=== PATIENT | male | born 1975 | race Hispanic/Latino ===

== ENCOUNTER 2024-04-16 20:43 | Emergency (ER) | payer OTHER ==
[~2024-04-16] VITALS: Ht 180.3 cm; Wt 89.8 kg
--- NOTE | 2024-04-16 20:46 | NUR ---
COVID AND FLU SWABS SENT FOR ANY FUTURE ORDERS
--- NOTE | 2024-04-16 20:57 | EKG ---
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
[2024-04-16 21:08] LABS: RAPID GROUP A STREP negative (NEGATIVE)
[2024-04-16 21:16] LABS: SARS-CoV-2, RNA, NAAT NEGATIVE SARS CoV-2 (NEGATIVE)
[2024-04-16 21:17] LABS: INFLUENZA TYPE A Negative For Type A (NEGATIVE); INFLUENZA TYPE B Negative For Type B (NEGATIVE)
--- NOTE | 2024-04-16 21:21 | ERN ---
General Chief Complaint: Fever Stated Complaint: FEVER, HEADACHE, GBW Time Seen by MD: 20:44 Source: patient History of Present Illness Initial Comments PATIENT IS A 48-YEAR-OLD MALE COMING IN TO BE EVALUATED FOR URI SYMPTOMS. HE STATES THAT THE SYMPTOMS BEGAN TWO DAYS AGO. STATES IT HAS BEEN COUGHING IN HIS HAS BEEN CHEST DISCOMFORT WHEN HE COUGHS. HE ALSO STATES THAT HE HAS BEEN HAVING CHILLS. Allergies: Coded Allergies: No Known Allergies (Unverified Allergy, Unknown, 04/16/24) Past Medical History Past Medical History: No Pertinent History Past Surgical History: None ROS Dictation CONSTITUTIONAL: CHILLS, NO FEVER, NO WEAKNESS, NO DIAPHORESIS, NO MALAISE. HEAD/FACE: NO SIGNS OF TRAUMA. EENT: NO EYE PAIN, NO BLURRED VISION, NO TEARING, NO DOUBLE VISION, NO EAR PAIN , NO EAR DISCHARGE, NO NOSE PAIN, NO NASAL CONGESTION, NO THROAT PAIN, NO THROAT SWELLING, NO MOUTH PAIN. RESPIRATORY: COUGH, NO ORTHOPNEA, NO SOB, NO STRIDOR, NO WHEEZING. CARDIOVASCULAR: NO CHEST PAIN, NO EDEMA, NO PALPITATIONS, NO SYNCOPE. GASTROINTESTINAL/ABDOMINAL: NO ABDOMINAL PAIN, NO CONSTIPATION, NO DIARRHEA, NO NAUSEA, NO VOMITING. GENITOURINARY: NO ABNORMAL DISCHARGE, NO DYSURIA, NO FREQUENT URINATION, NO HEMATURIA. NO COMPLAINTS OF PAIN IN THE GENITALS. MUSCULOSKELETAL: NO BACK PAIN, NO GOUT, NO JOINT PAIN, NO JOINT SWELLING, NO MUSCLE PAIN, NO MUSCLE STIFFNESS, NO NECK PAIN. INTEGUMENTARY: NO CHANGE IN COLOR, NO CHANGE IN HAIR/NAILS, NO DRYNESS, NO LESION, NO LUMPS, NO RASH. NEUROLOGICAL/PSYCH: NO ANXIETY, NOT DEPRESSED, NO EMOTIONAL PROBLEM, NO HEADACHE, NO NUMBNESS, NO PRE-EXISTING DEFICIT, NO HISTORY OF SEIZURES, NO TREMORS, NO WEAKNESS. HEMATOLOGIC/LYMPHATIC: NOT ANEMIC, NO HISTORY OF BLOOD CLOTS, NO APPARENT BLEEDING, NO BRUISING, GLANDS NOT SWOLLEN. ALL SYSTEMS NEGATIVE, EXCEPT NOTED. Physical Exam Physical Exam Dictation VITAL SIGNS: REVIEWED. GENERAL APPEARANCE: ALERT, ORIENTED X3, NO ACUTE DISTRESS, OBESE. HEAD AND FACE: NON-TRAUMATIC. EYES: PERRL, PINK CONJUNCTIVAS, EYELID NO TRAUMA, ANTERIOR CHAMBER CLEAR. EARS: PINNAS INTACT AND NO SIGNS OF TRAUMA OR ERYTHEMA. EAR CANALS CLEAR AND NO DISCHARGE. TMS NO ERYTHEMA. NOSE: NO DISCHARGE, NO BLEEDING. OROPHARYNX: MOUTH NORMAL, TEETH NO CARIES, TONGUE PINK. PHARYNX CLEAR, NO ER YTHEMA. TONSILS NO EXUDATES, NO ABSCESSES NOTED. MUCOUS MEMBRANE MOIST. NECK: SUPPLE, NON-TENDER, NO THYROMEGALY, NO MASSES, NO JVD, NO BRUITS. BREAST: DEFERRED. CHEST: NO TENDERNESS, NO CREPITUS, NO PARADOXICAL MOVEMENT, NO RETRACTIONS. LUNGS: CLEAR, WELL-VENTILATED, SYMMETRIC, NO RALES, NO WHEEZING, NO RHONCHI, NO STRIDOR, GOOD BREATH SOUNDS BILATERALLY. HEART: REGULAR RATE, REGULAR RHYTHM, NO MURMUR, NO GALLOPS. VASCULAR: NO PERIPHERAL EDEMA. ABDOMEN: SOFT, POSITIVE BOWEL SOUNDS, NONDISTENDED, NO GUARDING, NONTENDER, NO REBOUND, NO MASSES NO HEPATOMEGALY, NO SPLENOMEGALY, NO LU'S SIGN, NO HERNIAS. RECTAL: DEFERRED. GENITAL: DEFERRED. NEUROLOGICAL: NORMAL SPEECH, GROSS MOTOR FUNCTION INTACT, GROSS SENSORY FUNCTION INTACT. MUSCULOSKELETAL: NECK NONTENDER, FULL RANGE OF MOTION, BACK NONTENDER, FULL RANGE OF MOTION. EXTREMITIES: NONTENDER, FULL RANGE OF MOTION. SKIN: COLOR PINK, DRY, NO TURGOR, NO RASH, NO LACERATIONS, NO ABRASIONS, NO CONTUSIONS. LYMPHATICS: DEFERRED. Results Laboratory and Microbiology Lab and Micro Result Laboratory Tests Test 04/16/24 20:52 Influenza Type A Antigen Negative For Type A Influenza Type B Antigen Negative For Type B SARS-CoV-2, RNA, NAAT NEGATIVE SARS CoV-2 Group A Streptococcus Rapid negative (NEGATIVE) Labs Reviewed?: Yes EKG/XRAY/US/CT/MRI EKG Comment 04/16/2024 TIME 8:50 P.M. VENTRICULAR RATE [address] WAVE ELEVATION OR DEPRESSION X-RAY Comment IMAGING REPORT Signed PATIENT: LUIS FERNANDO BURGER MR#: [id number] : 1975 SEX: M AGE: 48 LOCATION: [facility] ORDER 52 STATUS: REG ER REPORT#: [id number] SERVICE 51 REASON: COUGH ORDERING PHYSICIAN: MAURISIO PARKER MD PROCEDURE: CXR1VW - CHEST 1VW INDICATION: COUGH TECHNIQUE: CHEST 1VW COMPARISON: None FINDINGS/IMPRESSION: Prominent bilateral interstitial markings which may represent bronchitis or vascular congestion in the proper clinical setting. Cardiac silhouette is within normal limits. Mild degenerative changes of the spine. The visualized upper abdomen appears unremarkable. DICTATED BY: JOSELIN MCCORMACK MD DATE: 04/16/242139 ELECTRONICALLY SIGNED BY: JOSELIN MCCORMACK MD DATE: 04/16/242142 [facility] MDM: DIFFERENTIAL DIAGNOSIS: URI, BRONCHITIS, SINUSITIS, 48-YEAR-OLD MALE COMING IN TO BE EVALUATED FOR URI SYMPTOMS. ON PHYSICAL EXAM BILATERAL NASAL TURBINATE SWELLING OROPHARYNGEAL ERYTHEMA WITH DRAINAGE. BILATERAL TYMPANIC MEMBRANE ERYTHEMA CHEST X-RAY SHOWS MILD BRONCHIAL CONGESTION SUGGESTIVE OF BRONCHITIS. PATIENT WILL BE DISCHARGED WITH ORAL ANTIBIOTICS AND SYMPTOMATIC MANAGEMENT. ED Course Orders Procedure Category Date Status Time Covid Rna Naat LAB 04/16/24 Complete 20:52 Influenza Type A & B, LAB 04/16/24 Complete Rapid 20:52 Rapid (Group A Strep) LAB 04/16/24 Complete 20:52 Chest 1vw RAD 04/16/24 Resulted 20:52 12 Lead Ekg Tracing- EKG 04/16/24 Complete Technical 20:52 Vital Signs Date Time Temp Pulse Resp B/P (MAP) Pulse Ox O2 Delivery O2 Flow Rate FiO2 04/16/24 20:44 100.8 105 20 159/89 100 Room Air DX & DISP Disposition: Discharge Departure Impression: Primary Impression: Sinusitis Additional Impression: URI (upper respiratory infection) Condition: Stable Scripts Loratadine (Loratadine) 10 Mg Tablet 1 TAB PO DAILY for allergy symptoms for 30 Days, #30 TAB 0 Refills Prov: MAURISIO PARKER MD 04/16/24 Fluticasone Propionate (Flonase Nasal Kenneth) 50 Mcg/Actuation Kenneth 2 SPRAY NS DAILY, #16 GM 0 Refills Prov: MAURISIO PARKER MD 04/16/24 Amoxicillin/Potassium Clav (Amox Tr-K Clv 875-125 mg Tab) 875 Mg-125 Mg Tablet 1 TAB PO BID for 10 Days, #20 TAB 0 Refills Prov: MAURISIO PARKER MD 04/16/24 Additional Instructions: FOLLOW-UP WITH PRIMARY CARE PROVIDER IN 1 TO 2 DAYS. TAKE MEDICATIONS DIRECTED HERE IN THE EMERGENCY ROOM. OKAY TO CONTINUE HOME MEDICATIONS UNLESS OTHERWISE DISCUSSED DURING YOUR VISIT IN THE EMERGENCY ROOM TODAY. RETURN TO YOUR NEAREST EMERGENCY ROOM IF SYMPTOMS WORSEN OR IF THERE IS NO IMPROVEMENT. CALL 911 IF YOU NEED IMMEDIATE ASSISTANCE. TAKE TYLENOL [id number] NEEDED AND IF NO CONTRAINDICATIONS ARE PRESENT. INCREASE ORAL HYDRATION. A WOUND CULTURE OR URINE CULTURE WAS ORDERED HERE IN THE EMERGENCY ROOM DEPARTMENT PLEASE FOLLOW-UP WITH PRIMARY CARE PROVIDER AND ADVISE THEM TO GET REPEAT PORTS FROM OUR FACILITY. IF YOU HAD ANY YAMIL WRAP/SPLINTS THAT WERE APPLIED HERE, PLEASE DO NOT REMOVE THEM UNTIL YOU SEE YOUR PRIMARY CARE OR SPECIALTY. REFERRALS: Referrals: SELF,REFERRAL (PCP) CHUYITA ERWIN MD Time of Disposition: 21:50 MAURISIO PARKER MD Apr 16, 2024 21:21
--- NOTE | 2024-04-16 21:43 | HMCIMG ---
INDICATION: COUGH TECHNIQUE: CHEST 1VW COMPARISON: None FINDINGS/IMPRESSION: Prominent bilateral interstitial markings which may represent bronchitis or vascular congestion in the proper clinical setting. Cardiac silhouette is within normal limits. Mild degenerative changes of the spine. The visualized upper abdomen appears unremarkable.
[2024-04-16] MEDS ORDERED: AMOX1TAB16 PO (21:51)
[2024-04-16] MEDS ORDERED: LORA10TA7 PO (21:51)
[2024-04-16] MEDS ORDERED: FLUT16H NS (21:51)
[2024-04-16 21:58] VITALS: BP 150/88; PULSE 90; RESP 18; TEMP 100.7; O2SAT 98
== END 2024-04-16 22:07 | disposition home or self-care (01) ==
LOC: EDH 20:43
DX: J32.9 Chronic sinusitis, unspecified (principal); J06.9 Acute upper respiratory infection, unspecified; Z20.822 Contact with and (suspected) exposure to COVID-19
CPT/HCPCS: 71045; 87635; 87804; 87880; 93005; 99284; 99285